=== PATIENT | female | born 2000 ===

== ENCOUNTER → 2025-06-18 10:29 | Outpatient (REF) | payer OTHER, SELFPAY | LOC: PAVMRI 10:29 | PROVIDERS: ATTENDING PHYSICIAN Family Medicine; FAMILY PHYSICIAN Internal Medicine | DX: G43.909 Migraine, unspecified, not intractable, without status migrainosus (principal); R51.9 Headache, unspecified; G44.52 New daily persistent headache (NDPH) | CPT/HCPCS: 70551 ==